=== PATIENT | female | born 1955 | race Caucasian/White ===

== ENCOUNTER → 2024-11-04 | Outpatient (CLI) | payer MEDICARE, SELFPAY ==
--- NOTE | 2024-11-04 | XR_ITS ---
Examination: PA lateral chest 2 views TECHNIQUE: Upright PA lateral chest 2 views Exam date and time: November 04, 2024 at 12:47 PM INDICATIONS: Coughing beginning one month ago FINDINGS: Moderate hyperexpansion Normal heart size Scarring in the lingular segment No lobar pneumonia or pulmonary edema IMPRESSION: Moderate hyperexpansion No pneumonia or pulmonary edema
== END | disposition home or self-care (01) ==
PROVIDERS: PCP Family Medicine; Referring Provider Family Medicine; Visit Provider Family Medicine
DX: J98.4 Other disorders of lung (principal)
CPT/HCPCS: 71046

== ENCOUNTER 2024-12-15 18:23 | Emergency (ER) | payer MEDICARE, SELFPAY ==
[2024-12-15 18:24] VITALS: BMI 29.0
--- NOTE | 2024-12-15 18:30 | EKG_ITS ---
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
[2024-12-15 18:43] VITALS: BP 190/105; BP 197/103; PULSE 73; RESP 20; TEMP 36.4; O2SAT 97
--- NOTE | 2024-12-15 18:51 | XR_ITS ---
Examination: PA chest single view TECHNIQUE: Upright PA chest single view Exam date and time: December 15, 2024 1905 hours Comparison November 04, 2024 INDICATIONS: Chest pain today FINDINGS: Poor definition left cardiac contour which may relate to scarring Accentuation of basilar bronchovascular markings No pulmonary edema Normal heart size IMPRESSION: Basilar bronchitis pattern
--- NOTE | 2024-12-15 18:51 | PD.EDRME ---
Rapid Medical Screening Exam [facility] Arrival date/time: 12/15/24 18:23 69F with history of HTN (on metoprolol, losartan, and HCTZ) presents to ED with intermittent CP (radiates down L arm) and N/V starting yesterday. Patient has also been dealing with a chronic cough (several months). Patient took 2 normal-sized aspirin about 2 hours ago w/o relief. Chief Complaint: Chest Pain Vital signs: Vital Signs Temperature 97.6 F 12/15/24 18:43 Pulse Rate 73 12/15/24 18:43 Respiratory Rate 20 12/15/24 18:43 Blood Pressure 197/103 H 12/15/24 18:43 Pulse Oximetry (%) 97 12/15/24 18:43 Oxygen Delivery Method Room Air 12/15/24 18:43
[2024-12-15 19:26] LABS: Basophils % (Auto) 1 % (0-2.5); Eosinophils # (Auto) 0.2 Thou/mm3 (0.0-0.5); Eosinophils % (Auto) 3 % (0-10); Hemoglobin 13.3 g/dL (12.0-16.0); Immature Granulocytes % (Auto) 0 % (0-0); Immature Granulocytes Auto 0.01 Thou/mm3 (0.00-0.00); Lymphocytes % (Auto) 35 % (10-50); Mean Corpuscular HGB Conc 34.1 g/dl (31.0-37.0); Mean Corpuscular Hemoglobin 30.6 pg (25.0-35.0); Mean Corpuscular Volume 90 fL (80-100); Monocytes # (Auto) 0.5 Thou/mm3 (0.0-0.8); Monocytes % (Auto) 9 % (0-12); Neutrophils # (Auto) 3.1 Thou/mm3 (1.8-7.7); Neutrophils % (Auto) 53 % (37-80); Nucleated Red Blood Cell % 0 /100 WBC (0); Platelet Count 317 Thou/mm3 (140-440); RDW Standard Deviation 45.1 fL (36.4-46.3); Red Blood Count 4.34 Miln/mm3 (4.00-5.20); White Blood Count 5.8 Thou/mm3 (3.6-11.0)
[2024-12-15 19:37] LABS: Partial Thromboplastin Time 27.6 Seconds (22.0-36.0); Prothrombin Time 10.7 Seconds (9.0-12.2)
[2024-12-15 19:42] LABS: B-Type Natriuretic Peptide 60 pg/mL (0-100)
[2024-12-15 19:43] LABS: Alanine Aminotransferase 9 U/L (10-49); Albumin, Serum 4.3 gm/dL (3.4-4.8); Albumin/Globulin Ratio 1.6 (1.2-2.2); Alkaline Phosphatase 53 U/L (46-116); Anion Gap 9 (7-16); Aspartate Amino Transferase 20 U/L (0-34); BUN/Creatinine Ratio 23 Ratio (12-20); Bilirubin,Total 0.9 mg/dL (0.3-1.2); Blood Urea Nitrogen 14 mg/dL (9-23); Calcium 10.1 mg/dL (8.3-10.6); Calcium (Corrected) 10.1 mg/dL (8.5-10.1); Carbon Dioxide 26.9 mMol/L (20.0-31.0); Chloride 98 mMol/L (98-107); Creatinine (Component) 0.6 mg/dL (0.6-1.3); Estimated Creatinine Clearance 101.3 mL/min (>60); Globulin 2.7 gm/dL (2.3-3.5); Glucose 90 mg/dL (74-106); Magnesium 1.7 mg/dL (1.6-2.6); Osmolality,Calculated 268 (275-295); Potassium 3.8 mMol/L (3.4-5.1); Sodium 134 mMol/L (136-145); Troponin I < 0.002 ng/mL (0.0-0.045); eGFR > 60 See Note
--- NOTE | 2024-12-15 21:18 | EDNOTE_ITS ---
ED Chest Pain RME/HPI General Chief Complaint: Chest Pain Stated Complaint: CHEST PAIN, NAUSEA, ANN, HIGH BP, L) ARM TINGLING Source: patient Arrival date/time: 12/15/24 18:23 Mode of arrival: ambulatory Limitations: no limitations RME / HPI RME / HPI narrative: 12/15/24 18:23 69F with history of HTN (on metoprolol, losartan, and HCTZ) presents to ED with intermittent CP (radiates down L arm) and N/V starting yesterday. Patient has also been dealing with a chronic cough (several months). Patient took 2 normal- sized aspirin about 2 hours ago w/o relief. --------- Dr. Allen?s Main ED Evaluation: 69yo female with a history of HTN (on losartan, metoprolol, and hydrochlorothiazide) presents to the ED for a chief complaint of chest pain x yesterday. Patient states she started having squeezing, heavy chest pain yesterday, reporting it felt better after she took extra doses of her blood pressure medication (due to it being high). She states her pain started getting worse again today at 1700 and checked her blood presure, which was noted to be 199/93. She took extra doses of her BP medication and 2 regular aspirin without any alleviation of symptoms, so she came in for evaluation. Patient reports associated nausea, dizziness, shortness of breath, and tingling to her left arm. 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 She denies any tobacco or illicit drug use. Related Data Previous Rx's ?Medication ?Instructions ?Recorded codeine 10 mg-guaifenesin 100 mg/5 5 ml PO Q6H PRN cou gh #120 mL 12/16/24 mL oral liquid Allergies Allergy/AdvReac Type Severity Reaction Status Date / Time bacitracin (From Neosporin Allergy Unknown SWELLING Verified 12/15/24 18:28 ([id number])) neomycin (From Neosporin Allergy Unknown SWELLING Verified 12/15/24 18:28 ([id number])) polymyxin B (From Neosporin Allergy Unknown SWELLING Verified 12/15/24 18:28 ([id number])) Review of Systems Review of Systems Systems Reviewed: All systems reviewed, normal except as documented Past Medical History Social History SMOKING STATUS: Never smoker ED Exam Narrative Physical exam: GENERAL APPEARANCE: alert and oriented x 4, well-developed, well-nourished, no acute distress VITALS: All vitals were reviewed and the pulse ox is 97% on room air, which is normal according to my interpretation. HEENT: Normocephalic, atraumatic; pupils equal, round, reactive to light; EOMI; mucous membranes pink, moist; oropharynx clear NECK: Supple LUNGS: CTABL; no wheezes, no rales, no rhonchi HEART: Regular rate, regular rhythm; normal S1, S2; no murmurs ABDOMEN: non distended; normal BS; soft, no tenderness, no guarding, no rebound; no masses, no organomegaly, no hernia BACK: no CVA tenderness EXTREMITIES: atraumatic; no edema NEUROLOGIC: awake; alert and oriented x4; cranial nerves II-XII grossly intact; no focal sensory or motor deficits PSYCHIATRIC: appropriate mood and affect SKIN: warm, dry, normal color; no rashes General Limitations: Present no limitations Course Course Course Narrative: CXR is ordered for determining the etiology of chest pain. Quality Measures none Orders Category Date Time Status CT Screening NOW Care 12/15/24 22:10 Active Roller Helper STAT Care 12/15/24 22:09 Active Continuous Pulse Oximetry ONCE Care 12/15/24 22:09 Active EKG (ED ONLY) *Do not use* NOW Care 12/15/24 18:30 Completed Insert IV STAT Care 12/15/24 22:[address] angio chest Stat Exams 12/15/24 22:09 Taken EKG (ED Only) Stat Exams 12/15/24 18:30 Draft XR chest 1V portable Stat Exams 12/15/24 18:51 Completed B-Type Natriuretic Peptide Stat Lab 12/15/24 18:56 Completed CBC Stat Lab 12/15/24 18:56 Completed Comprehensive Metabolic Panel Stat Lab 12/15/24 18:56 Completed Magnesium Stat Lab 12/15/24 18:56 Completed Partial Thromboplastin Time Stat Lab 12/15/24 18:56 Completed Prothrombin Time with INR Stat Lab 12/15/24 18:56 Completed Troponin I Stat Lab 12/15/24 18:56 Completed Troponin I Stat Lab 12/15/24 23:10 Completed Labetalol IV [Trandate IV] Med 12/15/24 22:09 Discontinued 20 mg IVP X1 ONE Nitroglycerin Oint 2% [Nitro-paste Oint 2%] Med 12/15/24 22:09 Discontinued 1 inch TOP X1 ONE guaiFENesin/COD SYRUP [Robitussin Ac Syrup] Med 12/15/24 22:09 Discontinued 10 ml PO X1 ONE hydrALAZINE INJ [Apresoline Inj] Med 12/15/24 23:41 Discontinued 10 mg IV X1 ONE Vital Signs Vital signs: Vital Signs Temperature 97.6 F 12/15/24 18:43 Pulse Rate 73 12/15/24 18:43 Respiratory Rate 20 12/15/24 18:43 Blood Pressure 197/103 H 12/15/24 18:43 Pulse Oximetry (%) 97 12/15/24 18:43 Oxygen Delivery Method Room Air 12/15/24 18:43 Chest Pain MDM Narrative MDM Narrative:: Scribe Attestation: 12/15/24 Betsy Le am scribing for and in the presence of Dr. Allen. 2200: Patient's blood pressure is 183/103 with a HR in the 70s. Labetolol IV, Nitropaste, and Tylenol with Codeine ordered. Heart score, 3, low risk. EMR was on downtime. Patient discharged, advised to follow-up with cardiology in the next couple days. RX sent to pharmacy for Robitussin with codeine. Patient data External records reviewed:: [facility] previous records (Per chart review, patient has no previous ED visits or admissions to this facility.) Clinical information provided by:: patient Social determinants that could affect healthcare access:: none Patient has the following chronic illnesses:: HTN How is presenting disease/condition affected by chronic disease/condition?: exacerbated by Evaluation data The following diagnostics were reviewed and interpreted by me:: lab results, radiology exam(s) and EKG tracing(s) Lab and/or radiology exams considered but not ordered:: none Interpretation Summary: CBC is normal, PT and INR are normal, PTT is normal, CMP is normal, Troponin is normal, BNP is normal, according to my interpretation. EKG done at 1840, NSR, rate of 72, normal axis, no ectopy, no acute ischemia, according to my interpretation. ------- [facility] Report Signed Patient: RASHAD NGUYEN. Record#: [id number] Birthdate: 1955 Age/Sex: 69 / F Location: [facility] Attending Dr: Ordering Physician: Guanakito Edgar PA-C Date of Service: 12/15/24 Procedure(s): XR chest 1V portable Accession Number(s): [id number] cc: Mikey Arnold MD; Karolina Chaudhry MD; Guanakito Edgar PA-C~ Examination: PA chest single view TECHNIQUE: Upright PA chest single view Exam date and time: December 15, 2024 1905 hours Comparison November 04, 2024 INDICATIONS: Chest pain today FINDINGS: Poor definition left cardiac contour which may relate to scarring Accentuation of basilar bronchovascular markings No pulmonary edema Normal heart size IMPRESSION: Basilar bronchitis pattern Dictated By: Mikey Arnold MD Signed By: <Electronically signed by Mikey Arnold MD in OV> 12/15/244 Medications / Prescriptions Medications or Prescriptions considered but not ordered:: none Medication administrations:: Medication Administration History Discontinued Medications Guaifenesin/Codeine Phosphate (Guaifenesin/Cod Syrup 5 Ml Udc) 10 ml PO X1 ONE; Protocol Stop: 12/15/24 22:10 Last Admin: 12/15/24 23:23 Dose: 10 ml Documented By: MARILOU Hydralazine HCl (Hydralazine Inj 20 Mg/Ml Vial) 10 mg IV X1 ONE Stop: 12/15/24 23:42 Last Admin: 12/16/24 01:07 Dose: Not Given Documented By: MARILOU Non-Admin Reason: Change of Condition Labetalol HCl (Labetalol Inj 5 Mg/Ml Vial 20 Ml) 20 mg IVP X1 ONE Stop: 12/15/24 22:10 Last Admin: 12/15/24 22:55 Dose: 20 mg Documented By: MARILOU Nitroglycerin (Nitroglycerin Oint 2% 1 Inch Packet) 1 inch TOP X1 ONE Stop: 12/15/24 22:10 Last Admin: 12/15/24 22:39 Dose: 1 inch Documented By: MARILOU see above Consultations Consultation(s) initiated? (list below): No Diagnosis Chest Pain Differential Diagnosis: pneumothorax and other (angina, aortic dissection, PE) Most likely diagnosis given after review of the tests above:: see clinical impression below Admission Indicated Admission indicated?: not indicated Admission Request Was there a request for admission?: No Disposition Plan Disposition Plan: Discharge Discharge Attestation Discharge Attestation: The patient and all family members were given an opportunity to ask questions and understood the discharge instructions. Discharge instructions specifically effects, indications for sooner follow up or return to the emergency department, and the expected course of current diagnosis. Patient condition: Stable Discharge Plan Plan Patient Disposition: HOME (Self Care) Disposition Comment: Stable for discharge home Patient condition on transfer: Stable Prescriptions/Referrals Prescriptions/Med Rec: New codeine-guaifenesin 10-100 mg/5 mL liquid 5 ml PO Q6H PRN (Reason: cough) Qty: 120 0RF Referrals: Karolina Mixon MD [Primary Care Provider] - In 1 week Problem List Clinical Impression: Hypertensive crisis, Chest pain, Chronic cough Patient/Caregiver Discharge Instructions Print Language: Polish Stand Alone Forms: [facility] Award Info., Patient Portal Info Letter
[2024-12-15 21:24] VITALS: BP 183/103; PULSE 71; RESP 22; O2SAT 96
[2024-12-15 21:29] VITALS: BP 183/103; PULSE 72; RESP 18; O2SAT 97
--- NOTE | 2024-12-15 22:09 | XR_ITS ---
Examination: CTA chest with intravenous contrast 2-D reconstructions 3-D reconstructions, vascular Date and time of exam: December 16, 2024 0123 hours INDICATIONS: Nausea vomiting hypertension chest pain today CTDI: vol (mGy) 9.47 DLP: (mGycm) 376 Technique: Multiple axial sections of the thorax have been obtained. 3 mm slice thickness, from below the hemidiaphragms to above the apices of the lungs. Mediastinal and lung density settings have been obtained. 2-D sagittal and coronal reconstructions. 3-D angiographic renderings, 3-D volume renderings, 3D post processing, vascular maximum intensity projections obtained. Contrast administered is 100 cc Isovue-370. Intravenous Low dose protocols were performed. One or more of the following dose reduction techniques were used; automated exposure control, adjustment of the mA and/or KV according to patient size, use of iterative reconstruction technique. Findings: No thoracic aortic aneurysm dilatation or dissection No pulmonary artery filling defects Moderate calcification left anterior descending left circumflex right coronary arteries Mild enlargement cardiac contour 6 mm nodule in the lingular segment 4 mm nodule in the left lower lobe No pneumonia or pulmonary edema No visualized liver or splenic lesions IMPRESSION: No thoracic aortic aneurysm dilatation or dissection Negative for pulmonary artery emboli Moderate coronary artery calcification Noncalcified pulmonary nodules as above, with this study as baseline recommend 6 month follow-up CT chest without contrast
[2024-12-15 22:37] VITALS: BP 180/96; PULSE 67; RESP 16; O2SAT 98
[2024-12-15 22:39] VITALS: BP 180/96; PULSE 70
[2024-12-15] MEDS: NITROGLYCERIN OINT 2% 1 INCH PACKET TOP (22:39)
[2024-12-15 22:55] VITALS: BP 180/96; PULSE 71
[2024-12-15] MEDS: LABETALOL INJ 5 MG/ML VIAL 20 ML 20 MG IVP (22:55)
[2024-12-15] MEDS: guaiFENesin/COD SYRUP 5 ML UDC 10 ML PO (23:23)
[2024-12-16] VITALS (7 sets, daily range): BP systolic 123–134; BP diastolic 69–85; PULSE 74–87; RESP 18–25; TEMP 36.8; O2SAT 93–98
[2024-12-16 00:04] LABS: Troponin I < 0.002 ng/mL (0.0-0.045)
--- NOTE | 2024-12-16 01:55 | PC.NURSE ---
Pt denies chest pain.
--- NOTE | 2024-12-16 03:10 | PC.NURSE ---
PT states she is breating much easier. Appon auscultation, Lung sounds that were couarse with some wheezing. Lung sounds are now clear throughout. MD notified. BP controlled. Denies cxp.
--- NOTE | 2024-12-16 03:38 | PRELIM_ITS ---
CT angiogram of the chest with intravenous contrast (axial sections with sagittal and coronal reformats) December 16, 2024 0123 hours Clinical History: Hypertension and chest pain. Technique:Helical axial sections with sagittal and coronal reformats of the chest were obtained with intravenous contrast. Iterative reconstruction technique was employed to reduce patient radiation exposure. 3D/MIP reconstructed images were also provided. Comparison: None. Findings: There is no filling defect within the pulmonary artery divisions to suggest pulmonary thromboembolism. The mediastinum demonstrates no evidence of mass or lymphadenopathy. The thoracic aorta is unremarkable. There is no pericardial effusion. The lungs are clear. No evidence of pleural effusion or pneumothorax. The osseous structures are unremarkable. The visualized upper abdominal viscera are unremarkable. Retroesophageal right subclavian artery. Coronary arteries calcifications. Dilated left atrium. Small hiatus hernia. Impression: 1. No CT evidence of pulmonary thromboembolism. 2. Small hiatus hernia. 3. Dilated left atrium. 4. Coronary arteries calcifications. If acute myocardial infarction is clinically suspected, consider correlation with troponin. Report Electronically Signed By: Roland Eldridge 12/16/2024 2:22:06 AM [EST]
--- NOTE | 2024-12-16 04:06 | PC.NURSE ---
WE HAD DOWN TIME FROM [id number].
== END 2024-12-16 04:10 | disposition home or self-care (01) ==
PROVIDERS: Physician Assistant; Emergency Provider Emergency Medicine; PCP Family Medicine
DX: I16.9 Hypertensive crisis, unspecified (principal); R07.9 Chest pain, unspecified; R05.3 Chronic cough; I10 Essential (primary) hypertension
CPT/HCPCS: 36415; 71045; 71275; 80053; 83735; 83880; 84484; 85025; 85610; 85730; 93005; 96374; 99285; A4649; J3490; Q9967; A9270; J1920